=== PATIENT | female | born 1985 | race Caucasian/White ===

== ENCOUNTER → 2020-01-26 11:08 | Outpatient (BNVA) | payer OTHER, SELFPAY | PROVIDERS: Family Provider Family Medicine; PCP Family Medicine; Visit Provider Nurse Practitioner Family | DX: Z20.828 Contact with and (suspected) exposure to other viral communicable diseases (principal) | CPT/HCPCS: 87635 ==

== ENCOUNTER 2020-07-29 16:20 | Emergency (ER) | payer SELFPAY ==
[2020-07-29 16:36] VITALS: BP 174/85; PULSE 71; RESP 18; TEMP 36.8; O2SAT 99; BMI 38.9
--- NOTE | 2020-07-29 17:10 | USCV_ITS ---
Karla Walker Age: 35 Gender: F : 1985 Exam Date: 07/29/2020 17:18 Ordering Phys: Josh Ramon DO Technologist: Judy Membreno [place] [facility] [place]: PAIN, SWELLING HISTORY: Lower extremity pain. Lower extremity swelling. FINDINGS: No evidence of DVT seen in any DEEP vessel visualized at this time. There is presence of SVT in a left accessory christian of the thigh. CONCLUSIONS No evidence of left lower extremity DVT. SUPERFICIAL THROMBUS IN LEFT THIGH ACCESSORY VEIN Romero Brody MD (Electronically Signed) Final Date: 30 July 2020 15:59 S
[2020-07-29 17:22] VITALS: O2SAT 100
--- NOTE | 2020-07-29 17:44 | ED_ITS ---
HPI - Extremity Problem General: Chief complaint: Extremity Injury, Lower Stated complaint: Poss Blood Clot in L. Leg Time Seen by Provider: 07/29/20 17:09 History of Present Illness: HPI Narrative: 35-year-old female comes in from primary care office she has a swollen lump on the medial aspect of her left thigh. She has a history of factor V Leiden deficiency and she is currently 18 weeks she is supposed to be getting Lovenox but has not yet been set up with her insurance. She denies any chest pain or shortness of breath. MD Complaint: extremity pain and extremity swelling Onset (ago): hour(s) Pain Consistency: intermittent Location: left Quality: aching Radiation: none Relieving factors: nothing Exacerbating factors: nothing Associated symptoms: Deny arthralgias, chest pain, fever(s), myalgias, rash or short of breath Review of Systems Const: Denies: fever(s) Card: Denies: chest pain Resp: Denies: dyspnea, productive cough or non-productive cough GI: Denies: abdominal pain, nausea, vomiting or diarrhea : Denies: flank pain, difficulty voiding, dysuria, urinary frequency or urinary urgency Skin/Breast: Denies: rash PFSH ED PFSH: Medical History Factor 5 Leiden mutation, heterozygous Smoking Social History Smoking and tobacco status: current every day smoker cigarettes Packs smoked per day: 0.5 Quit status (tobacco): not considering quitting Alcohol intake: never History of recent travel: No Current gender identity: Female Female Reproductive History: Date of last menstrual period: 03/27/20 Spontaneous abortions: No Physical Exam Const: COMMON NORMALS: no acute distress GENERAL APPEARANCE: cooperative and comfortable ORIENTATION/CONSCIOUSNESS: Yes awake, Yes oriented to person, Yes oriented to place and Yes oriented to time HENMT: COMMON NORMALS: normocephalic, atraumatic and hearing grossly normal bilaterally HEAD & SCALP: normocephalic and atraumatic Neck/C-Spine: COMMON NORMALS: no JVD Resp: COMMON NORMALS: normal respiratory effort, No retractions, No use of accessory muscles and clear to auscultation bilaterally AUSCULTATION: clear to auscultation bilaterally Cardio: COMMON NORMALS: no JVD, regular rate, regular rhythm and No murmurs present (Cardio) RATE: regular rate RHYTHM: regular rhythm Extremity: COMMON NORMALS: normal to inspection, capillary refill normal, no clubbing, cyanosis or edema, no calf tenderness and no pedal edema NARRATIVE EXTREMITY EXAM: Medial left thigh superficial thrombophlebitis on by palpation is moderately tender and inflamed. Neuro: SENSORIUM/ORIENTATION: Yes oriented to person, Yes oriented to place and Yes oriented to time Skin: COMMON NORMALS: no rashes or lesions noted GENERAL SKIN EXAM: no rashes or lesions noted Course Vital Signs: Vital signs: Vital Signs Temperature 98.3 F 07/29/20 16:36 Pulse Rate 79 07/29/20 17:45 Respiratory Rate 17 07/29/20 17:45 Blood Pressure 128/69 07/29/20 17:45 Pulse Oximetry 99 07/29/20 17:45 MDM - Extremity (Nontraumatic) MDM Narrative: Medical decision making narrative: Ultrasound does not show DVT. Moist heat follow-up with primary care as planned. Discharge Plan Discharge Patient Disposition: Home Clinical Impression: Superficial thrombophlebitis during , Factor 5 Leiden mutation, heterozygous Condition: Stable Prescriptions: No Action No Known Home Medications RF: 0 Discharge Orders: Discharge ED (Routine); Ordered 07/29/20 Ordered By: Josh Ramon Referrals: Eugenia Hernandez DO [Primary Care Provider] - Discharge Diet: Usual diet Patient Instructions: Opioid Safety Coding Level of Care Code ED Primary Clinician for Chg Fwd Exam Detailed
[2020-07-29 17:45] VITALS: BP 128/69; PULSE 79; RESP 17; O2SAT 99
--- NOTE | 2020-07-29 17:45 | PC.NURSE ---
heart tones doppled at 140-150bpm.
== END 2020-07-29 17:45 | disposition home or self-care (01) ==
PROVIDERS: Emergency Provider Family Medicine; PCP Family Medicine
DX: O22.22 Superficial thrombophlebitis in pregnancy, second trimester (principal); I80.02 Phlebitis and thrombophlebitis of superficial vessels of left lower extremity; O99.112 Other diseases of the blood and blood-forming organs and certain disorders involving the immune mechanism complicating pregnancy, second trimester; D68.51 Activated protein C resistance; Z3A.18 18 weeks gestation of pregnancy; F17.210 Nicotine dependence, cigarettes, uncomplicated
CPT/HCPCS: 93971; 99283

== ENCOUNTER → 2020-08-31 14:33 | Outpatient (BNVA) | payer SELFPAY | PROVIDERS: PCP Family Medicine; Visit Provider Obstetrics & Gynecology | DX: O09.92 Supervision of high risk pregnancy, unspecified, second trimester (principal); Z12.4 Encounter for screening for malignant neoplasm of cervix; Z86.19 Personal history of other infectious and parasitic diseases; D68.51 Activated protein C resistance | CPT/HCPCS: 80307; 84315; 85027; 86592; 86762; 86803; 86850; 86900; 87077; 87086; 87184; 87340; 87491; 87591; 88175 ==

== ENCOUNTER → 2020-09-07 11:01 | Outpatient (BNVA) | payer SELFPAY | PROVIDERS: PCP Family Medicine; Visit Provider Obstetrics & Gynecology | DX: Z34.82 Encounter for supervision of other normal pregnancy, second trimester (principal) | CPT/HCPCS: 76805 ==

== ENCOUNTER → 2020-11-29 12:43 | Outpatient (BNVA) | payer MEDICAID, SELFPAY | PROVIDERS: PCP Family Medicine; Visit Provider Nurse Practitioner Family | DX: Z20.822 Contact with and (suspected) exposure to COVID-19 (principal); J06.9 Acute upper respiratory infection, unspecified | CPT/HCPCS: 87635 ==